=== PATIENT | male | born 1980 | race Caucasian/White ===

== ENCOUNTER 2018-07-14 00:27 | Emergency (ER) | payer SELFPAY ==
[~2018-07-14] VITALS: Ht 165.1 cm; Wt 106.7 kg
[2018-07-14 00:36] VITALS: BP 106/64
--- NOTE | 2018-07-14 00:38 | NUR ---
PT TAKEN TO BED 4
[2018-07-14] MEDS ORDERED: ACET-5636 PO (00:40)
--- NOTE | 2018-07-14 00:40 | NUR ---
37/M CAME IN ED, C/O 07/21 CONSTANT PRESSURE-LIKE L LOWER BACK PAIN, X2 DAYS WORSENING TODAY. NO OBVIOUS ABNORMALITY NOTED, TENDER TO TOUCH. PT DENIES TRAUMA, FEVER, N/V/D, CONSTIPATION, HEMATURIA OR DYSURIA. PT REPORTS TAKING PERCOCET WITH LITTLE RELIEF, LAST DOSE 30 MINS AGO. AOX4, GCS 15, AMBULATORY, RR EVEN AND UNLABORED, PT MILDLY DISTRESSED WITH PAIN. HX SPINAL FUSION T2-L2 (2017)
--- NOTE | 2018-07-14 00:51 | NUR ---
Dr. Ramírez evaluating patient at bedside.
[2018-07-14] MEDS: KETOROLAC 30 MG/ML VIAL IVP ONE (01:02)
[2018-07-14] MEDS: NACL 0.9% 1,000 ML IV SCH (01:03)
--- NOTE | 2018-07-14 01:04 | NUR ---
IV STARTED, BLOOD DRAWN AND HANDED TO SPIN TABLE OPERATOR, MEDS GIVEN, PT TOLERATED WELL.
[2018-07-14 01:14] LABS: BASOPHILS % (AUTO) 0.4 % (0.0-2.0); EOSINOPHILS # (AUTO) 0.1 K/uL (0-0.4); EOSINOPHILS % (AUTO) 0.7 % (0.0-4.0); HEMATOCRIT 37.4 % (36-52); HEMOGLOBIN 12.2 g/dL (12.0-18.0); LYMPHOCYTES # (AUTO) 2.3 K/uL (2.0-11.5); LYMPHOCYTES % (AUTO) 18.3 % (20.5-51.1); MEAN CORPUSCULAR HEMOGLOBIN 27 pg (27-31); MEAN CORPUSCULAR HGB CONC 33 g/dL (33-37); MEAN CORPUSCULAR VOLUME 82.7 fL (80-94); MONOCYTES # (AUTO) 0.9 K/uL (0.8-1.0); MONOCYTES % (AUTO) 6.9 % (1.7-9.3); NEUTROPHILS # (AUTO) 9.4 K/uL (1.8-7.7); NEUTROPHILS % (AUTO) 73.7 % (42.2-75.2); PLATELET COUNT (AUTO) 215 K/uL (140-450); RED BLOOD CELL COUNT(AUTO) 4.53 MIL/uL (4.20-6.10); RED CELL DISTRIBUTION WIDTH 15.5 % (11.6-13.7); WHITE BLOOD COUNT (AUTO) 12.7 K/uL (4.8-10.8)
--- NOTE | 2018-07-14 01:14 | NUR ---
PT TAKEN TO CT
[2018-07-14 01:18] LABS: APPEARANCE,URINE CLEAR (CLEAR); BILIRUBIN,URINE NEGATIVE (NEGATIVE); BLOOD, URINE 1+ (NEGATIVE); COLOR,URINE YELLOW (YELLOW); LEUKOCYTE ESTERASE ,URINE NEGATIVE (NEGATIVE); NITRITE, URINE NEGATIVE (NEGATIVE); UGLUCOSE NEGATIVE (NEGATIVE)
[2018-07-14 01:25] LABS: ANION GAP 7.2 (8-16); CARBON DIOXIDE 27.6 mmol/L (21-32); CREATININE 0.8 mg/dL (0.7-1.3); POTASSIUM 3.8 mmol/L (3.5-5.1)
[2018-07-14 01:28] LABS: RBC,URINE 0-5 (RARE) /HPF (0-5); WBC,URINE 0-5 (RARE) /HPF (0-5)
--- NOTE | 2018-07-14 01:28 | NUR ---
PT RETURN FROM CT
--- NOTE | 2018-07-14 01:28 | NUR ---
PT BACK FROM CT
--- NOTE | 2018-07-14 01:30 | NUR ---
PT REPORTS IMPROVEMENT IN PAIN RELIEF, REPORTS 6/10 L LOWER BACK PAIN. ALL NEEDS MET AT THIS TIME.
[2018-07-14 01:31] LABS: ALBUMIN 3.2 g/dL (3.4-5.0); TOTAL BILIRUBIN 0.5 mg/dL (0.0-1.0)
--- NOTE | 2018-07-14 02:48 | NUR ---
PT RESTING IN BED, REPORTS 8/10 L LOWER BACK PAIN, ER MD AT BEDSIDE TO SPEAK WITH PT.
[2018-07-14 02:56] VITALS: BP 134/69
--- NOTE | 2018-07-14 02:56 | NUR ---
Patient discharged with v/s stable. Written and verbal after care instructions given and explained. Patient verbalized understanding. Ambulatory with steady gait. All questions addressed prior to discharge. Advised to follow up with PMD.
== END 2018-07-14 02:56 | disposition home or self-care (01) ==
LOC: MED 00:27
DX: M54.5 Low back pain (principal); Z88.1 Allergy status to other antibiotic agents; Z79.899 Other long term (current) drug therapy
CPT/HCPCS: 36415; 74176; 80053; 81001; 83690; 85025; 96374; 99285; J1885; J7030; 81002

== ENCOUNTER 2018-12-07 05:45 | Emergency (ER) | payer OTHER ==
[~2018-12-07] VITALS: Ht 165.1 cm; Wt 106.6 kg
[~2018-12-07 05:45] MED LIST: ACET-5636 PO
[2018-12-07 05:53] VITALS: BP 122/89
--- NOTE | 2018-12-07 05:55 | NUR ---
EKG PERFORMED IN TRIAGE ROOM WITH TRIAGE NURSE PRESENT
--- NOTE | 2018-12-07 06:01 | NUR ---
PT AMBULATED TO BED 4 WITH VSS.
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
[2018-12-07] MEDS ORDERED: KETOROLAC 30 MG/ML VIAL IVP ONE (06:10)
[2018-12-07] MEDS ORDERED: NACL 0.9% 1,000 ML IV ONE (06:10)
[2018-12-07] MEDS ORDERED: ASPIRIN 81 MG TAB.CHEW PO ONE (06:10)
--- NOTE | 2018-12-07 06:10 | NUR ---
X-RAY AT BEDSIDE, PT STATES TO BE IN TO MUCH PAIN AND DECLINING X-RAY AT THIS TIME.
--- NOTE | 2018-12-07 06:30 | NUR ---
LAB AT BEDSIDE.
[2018-12-07 06:38] LABS: BASOPHILS % (AUTO) 0.5 % (0.0-2.0); EOSINOPHILS # (AUTO) 0.1 K/uL (0-0.4); EOSINOPHILS % (AUTO) 1.9 % (0.0-4.0); HEMATOCRIT 38.6 % (36-52); HEMOGLOBIN 12.6 g/dL (12.0-18.0); LYMPHOCYTES # (AUTO) 2.6 K/uL (2.0-11.5); LYMPHOCYTES % (AUTO) 33.3 % (20.5-51.1); MEAN CORPUSCULAR HEMOGLOBIN 27 pg (27-31); MEAN CORPUSCULAR HGB CONC 33 g/dL (33-37); MONOCYTES # (AUTO) 0.6 K/uL (0.8-1.0); MONOCYTES % (AUTO) 7.9 % (1.7-9.3); NEUTROPHILS # (AUTO) 4.4 K/uL (1.8-7.7); NEUTROPHILS % (AUTO) 56.4 % (42.2-75.2); PLATELET COUNT (AUTO) 279 K/uL (140-450); RED BLOOD CELL COUNT(AUTO) 4.71 MIL/uL (4.20-6.10); RED CELL DISTRIBUTION WIDTH 15.6 % (11.6-13.7); WHITE BLOOD COUNT (AUTO) 7.7 K/uL (4.8-10.8)
--- NOTE | 2018-12-07 06:52 | NUR ---
PT IS STILL IN A LOT OF PAIN, ER MADE AWARE. PT STATES TO HAVE A RIDE AVAILABLE IF HE RECIEVES STRONGER PAIN MEDICATION.
[2018-12-07] MEDS ORDERED: MORPHINE SULFATE 4 MG/ML SYR IVP ONE ×2 (06:55→08:30)
[2018-12-07] MEDS ORDERED: PANTOPRAZOLE 40 MG INJ VIAL IVP ONE (06:55)
[2018-12-07 07:08] LABS: ALBUMIN 3.3 g/dL (3.4-5.0); ANION GAP 10.9 (8-16); CREATININE 0.8 mg/dL (0.7-1.3); POTASSIUM 3.9 mmol/L (3.5-5.1); TOTAL BILIRUBIN 0.5 mg/dL (0.0-1.0)
--- NOTE | 2018-12-07 07:20 | NUR ---
Pt report given to Divina ELIZABETH at bedside; vss. Transfer of care at this time.
--- NOTE | 2018-12-07 07:28 | NUR ---
PT. RESTING COMFORTABLY IN BED, HOB ELEVATED CURRENT PAIN 5/10 AFTER MEDICATION ADMINISTRATION. VSS. WILL CONTINUE TO MONITOR.
--- NOTE | 2018-12-07 08:52 | NUR ---
PT. UNABLE TO PROVIDE URINE SAMPLE AT THIS TIME, ER MD BUCKNER MADE AWARE. PER DOCTOR OKAY TO DISCHARGE WITHOUT URINE SPECIMEN PROVIDED.
[2018-12-07 09:02] VITALS: BP 99/53
--- NOTE | 2018-12-07 09:02 | NUR ---
Patient discharged with v/s stable. Written and verbal after care instructions given and explained. Patient alert, oriented and verbalized understanding of instructions. Ambulatory with steady gait. All questions addressed prior to discharge. ID band removed. Patient advised to follow up with PMD. Rx of NAPROSYN 375MG, NORCO 5/325 given. Patient educated on indication of medication including possible reaction and side effects. Opportunity to ask questions provided and answered. PT AMB TO LOBBY WITH STEADY GAIT AND WAITING FOR IZZY MITCHELL GIRLFRIEND.
== END 2018-12-07 09:02 | disposition home or self-care (01) ==
LOC: MED 05:45
DX: R07.89 Other chest pain (principal); M54.9 Dorsalgia, unspecified; G89.29 Other chronic pain; Z88.1 Allergy status to other antibiotic agents; Z88.8 Allergy status to other drugs, medicaments and biological substances; Z79.899 Other long term (current) drug therapy
CPT/HCPCS: 36415; 71045; 80053; 84484; 85025; 93005; 96374; 96375; 96376; 99284; C9113; J1885; J2270; J7030; Q0092

== ENCOUNTER 2019-04-01 12:20 | Emergency (ER) | payer OTHER ==
[~2019-04-01] VITALS: Ht 165.1 cm; Wt 106.6 kg
[2019-04-01 12:25] VITALS: BP 130/77
--- NOTE | 2019-04-01 12:35 | NUR ---
C/O CHEST PAIN AND BACK PAIN FOR 5 DAYS , TOOK IBUPROFEN 400 MG THIS MORNING AT 0800, DOES NOT HELP TOO MUCH HX: SPINAL FUSION TX: BACLOFEN . DENIES N/V/D; SKIN IS PINK/WARM/DRY; AAOX4 WITH EVEN AND STEADY GAIT; LUNGS CLEAR BL; HR EVEN AND REGULAR; PT DENIES ANY FEVER, SOB, OR COUGH AT THIS TIME; PATIENT STATES PAIN OF 7/10 AT THIS TIME; VSS; PATIENT POSITIONED FOR COMFORT; HOB ELEVATED; BEDRAILS UP X2; BED DOWN. ER MD MADE AWARE OF PT STATUS.
--- NOTE | 2019-04-01 12:43 | NUR ---
bedside monitor shows ST 105S, NO S/S OF RESPIRATORY DISTRESS NOTED.
[2019-04-01] MEDS ORDERED: KETOROLAC 60 MG/2 ML VIAL IM ONE (13:10)
--- NOTE | 2019-04-01 13:33 | NUR ---
Dr. Ramírez evaluating patient at bedside.
--- NOTE | 2019-04-01 13:33 | NUR ---
Patient being evaluated by physician at bedside.
[2019-04-01] MEDS ORDERED: NACL 0.9% 1,000 ML IV SCH (14:06)
[2019-04-01] MEDS ORDERED: MORPHINE SULFATE 4 MG/ML SYR IVP ONE ×2 (14:10→16:15)
--- NOTE | 2019-04-01 14:21 | NUR ---
PT STATED PAIN, MORPHINE GIVEN ORDERED.
--- NOTE | 2019-04-01 14:23 | NUR ---
PT LEFT FOR CT VIA WHEELCHAIR PER TECH.
[2019-04-01 14:36] LABS: BASOPHILS % (AUTO) 0.5 % (0.0-2.0); EOSINOPHILS # (AUTO) 0.1 K/uL (0-0.4); EOSINOPHILS % (AUTO) 1.3 % (0.0-4.0); HEMATOCRIT 39.1 % (36-52); HEMOGLOBIN 13.1 g/dL (12.0-18.0); LYMPHOCYTES # (AUTO) 2.4 K/uL (2.0-11.5); LYMPHOCYTES % (AUTO) 23.9 % (20.5-51.1); MEAN CORPUSCULAR HEMOGLOBIN 28 pg (27-31); MEAN CORPUSCULAR HGB CONC 33 g/dL (33-37); MEAN CORPUSCULAR VOLUME 82.4 fL (80-94); MONOCYTES # (AUTO) 0.7 K/uL (0.8-1.0); MONOCYTES % (AUTO) 7.3 % (1.7-9.3); NEUTROPHILS # (AUTO) 6.6 K/uL (1.8-7.7); PLATELET COUNT (AUTO) 379 K/uL (140-450); RED BLOOD CELL COUNT(AUTO) 4.75 MIL/uL (4.20-6.10); RED CELL DISTRIBUTION WIDTH 15.6 % (11.6-13.7); WHITE BLOOD COUNT (AUTO) 9.8 K/uL (4.8-10.8)
[2019-04-01 14:48] LABS: ANION GAP 13.4 (8-16); CARBON DIOXIDE 27.7 mmol/L (21-32); CREATININE 0.7 mg/dL (0.7-1.3); POTASSIUM 4.1 mmol/L (3.5-5.1)
[2019-04-01 14:58] LABS: APPEARANCE,URINE CLEAR (CLEAR); BILIRUBIN,URINE NEGATIVE (NEGATIVE); BLOOD, URINE 1+ (NEGATIVE); COLOR,URINE YELLOW (YELLOW); LEUKOCYTE ESTERASE ,URINE NEGATIVE (NEGATIVE); NITRITE, URINE NEGATIVE (NEGATIVE); PH,URINE 6.5 (5.0-9.0); UGLUCOSE NEGATIVE (NEGATIVE)
[2019-04-01 15:01] LABS: ALBUMIN 3.4 g/dL (3.4-5.0); TOTAL BILIRUBIN 0.3 mg/dL (0.0-1.0)
[2019-04-01 15:05] LABS: WBC,URINE 0-5 /HPF (0-5)
--- NOTE | 2019-04-01 15:41 | NUR ---
Dr. Ramírez re-evaluating patient at bedside.
--- NOTE | 2019-04-01 15:50 | NUR ---
PT SLEEPING AT THIS MOMENT. NO S/S OF RESPIATORY DISTRESS NOTED.
--- NOTE | 2019-04-01 16:16 | NUR ---
PT C/O CONTINUED PAIN TO BACK , DR BAR MADE AWARE, WILL CONTINUE WITH ORDERS.
--- NOTE | 2019-04-01 16:36 | NUR ---
Patient discharged with v/s stable. Written and verbal after care instructions given and explained. Patient alert, oriented and verbalized understanding of instructions. Ambulatory with steady gait. All questions addressed prior to discharge. ID band removed. Patient advised to follow up with PMD. Rx of NORCO given. Patient educated on indication of medication including possible reaction and side effects. Opportunity to ask questions provided and answered. PT CALLED FOR RIDE HOME AND WILL WAIT IN LOBBY FOR RIDE.
[2019-04-01 16:37] VITALS: BP 120/77
--- NOTE | 2019-04-05 07:26 | NUR ---
Late entry. Confirmed with RN that 1000ml 0.9 NS IV was completed at 1515
== END 2019-04-01 16:37 | disposition home or self-care (01) ==
LOC: MED 12:20
DX: R10.9 Unspecified abdominal pain (principal); M54.9 Dorsalgia, unspecified; Z98.890 Other specified postprocedural states; Z79.899 Other long term (current) drug therapy; Z88.1 Allergy status to other antibiotic agents; Z88.8 Allergy status to other drugs, medicaments and biological substances
CPT/HCPCS: 36415; 71250; 74176; 80053; 81001; 83690; 85025; 96372; 96374; 96376; 99284; J1885; J2270; J7030

== ENCOUNTER 2019-04-16 02:35 | Emergency (ER) | payer OTHER ==
[~2019-04-16] VITALS: Ht 165.1 cm; Wt 106.6 kg
[2019-04-16 02:41] VITALS: BP 103/72
--- NOTE | 2019-04-16 02:50 | NUR ---
PT TAKEN TO BED 10 VIA WHEELCHAIR, PT AMBULATED TO BED W/ STEADY GAIT. ERMD AWARE OF PT STATUS.
[2019-04-16] MEDS ORDERED: methylPREDNISolone SS 125 MG in WATER STERILE 2 ML IV ONE (03:15)
[2019-04-16] MEDS ORDERED: KETOROLAC 15 MG/ML VIAL IVP ONE (03:15)
[2019-04-16] MEDS ORDERED: ONDANSETRON 4 MG/2 ML VIAL IVP ONE (03:15)
[2019-04-16] MEDS ORDERED: MORPHINE SULFATE 4 MG/ML SYR IVP ONE (03:15)
--- NOTE | 2019-04-16 03:30 | NUR ---
PT TO ED WITH C/O L LEG PAIN RADIATING DOWN ENTIRE LEG X 3 DAYS. PT REPORTS HX OF SCIATICA S/P SPINE SURGERY. NO OBVIOUS DEFORMITY NOTED. PT PLACED INTO BED, PENDING MD GONZALEZ.
[2019-04-16] MEDS ORDERED: KETOROLAC 30 MG/ML VIAL ONE (03:50)
--- NOTE | 2019-04-16 04:11 | NUR ---
PT ON CELL PHONE, NO APPARENT SIGNS OF DISTRESS. POST LEAD ANDROID DEVELOPER.
[2019-04-16 04:39] VITALS: BP 103/72
--- NOTE | 2019-04-16 04:39 | NUR ---
Patient discharged with v/s stable. Written and verbal after care instructions given and explained. Patient alert, oriented and verbalized understanding of instructions. Ambulatory with steady gait. All questions addressed prior to discharge. ID band removed. Patient advised to follow up with PMD. Rx of PREDNISONE, NAPROSYN, LIDODERM WAS given. Patient educated on indication of medication including possible reaction and side effects. Opportunity to ask questions provided and answered. PT STATED "THE PAIN WENT AWAY" WHEN HE GOT UP PRIOR TO D/C.PT WAS EDUCATED ON OUTPATIENT CARE AND TO FOLLOW UP WITH PCP AND TO RETURN TO PT, EXCERCISE. PT UNDERSTOOD EDUCATION.
== END 2019-04-16 04:39 | disposition home or self-care (01) ==
LOC: MED 02:35
DX: M54.32 Sciatica, left side (principal); Z88.1 Allergy status to other antibiotic agents; Z79.899 Other long term (current) drug therapy
CPT/HCPCS: 96374; 96375; 99283; J1885; J2270; J2405; J2930

== ENCOUNTER 2019-05-03 05:49 | Emergency (ER) | payer OTHER ==
[~2019-05-03] VITALS: Ht 165.1 cm; Wt 104.3 kg
--- NOTE | 2019-05-03 05:57 | NUR ---
PT TAKEN TO BED 2
[2019-05-03 06:02] VITALS: BP 123/67
--- NOTE | 2019-05-03 06:05 | NUR ---
38/M PRESENTED TO ER AMBULATORY. UNSTEADY GAIT. C/O LEFT LEG PAIN RADIATING TO RIGHT LEG FOR 1 MONTH INTERMITTENTLY. STATES HIS PAIN IS WORSENING. HX OF SPINAL FUSION T2-L2 IN 2017. TAKES IBUPROFEN, NAPROXEN, HYDROCODONE AT HOME. BUT DOES NOT HELP ALLEVIATE THE SYMPTOMS. NO MEDICAL HX. NKA. NO SOB, NO DISTRESS. WILL CONTINUE TO MONITOR.
--- NOTE | 2019-05-03 06:18 | NUR ---
Dr. Piña examining patient.
[2019-05-03] MEDS ORDERED: MORPHINE SULFATE 2 MG/ML SYR IM ONE (06:20)
[2019-05-03 06:45] VITALS: BP 120/65
== END 2019-05-03 06:45 | disposition home or self-care (01) ==
LOC: MED 05:49
DX: M54.42 Lumbago with sciatica, left side (principal); M54.41 Lumbago with sciatica, right side; R03.0 Elevated blood-pressure reading, without diagnosis of hypertension; Z98.890 Other specified postprocedural states; Z79.899 Other long term (current) drug therapy; Z88.1 Allergy status to other antibiotic agents; Z88.8 Allergy status to other drugs, medicaments and biological substances
CPT/HCPCS: 96372; 99283; J2270

== ENCOUNTER 2020-07-10 16:46 | Emergency (ER) | payer OTHER ==
[~2020-07-10] VITALS: Ht 165.1 cm; Wt 106.6 kg
[2020-07-10 16:49] VITALS: BP 115/66
--- NOTE | 2020-07-10 16:54 | NUR ---
PT AMBULATED TO BED #3
--- NOTE | 2020-07-10 16:55 | NUR ---
C/O BACK PAIN X6 MONTHS S/P SPINAL FUSION 3 YEARS AGO. PAIN IS 10/10 SHARP LOCATED AT BACK. PT TOOK 4 IBUPROFEN TODAY. PT AOX4 AFIBRILE , AMBULATORY WITH STEADY GAIT, SCE , NO LIMITATION ON ROM OF LEFT SHOULDER AND ARM. FLAT SOFT ABDOMEN. PMH: SPINAL FUSION ALLERGIES: AMOXICILLIN, CLAVULANIC ACID
--- NOTE | 2020-07-10 16:57 | NUR ---
MELISSA JESSICA AT BEDSIDE EVALUATING PT.
[2020-07-10] MEDS ORDERED: KETOROLAC 60 MG/2 ML VIAL IM ONE (17:10)
[2020-07-10 17:23] VITALS: BP 115/66
--- NOTE | 2020-07-10 17:24 | NUR ---
Patient discharged with v/s stable. Written and verbal after care instructions given and explained regarding chronic pain. Patient alert, oriented and verbalized understanding of instructions. Ambulatory with steady gait. All questions addressed prior to discharge. ID band removed. Patient advised to follow up with PMD. Rx of norco given. Patient educated on indication of medication including possible reaction and side effects. Opportunity to ask questions provided and answered.
== END 2020-07-10 17:24 | disposition home or self-care (01) ==
LOC: MED 16:46
DX: M54.6 Pain in thoracic spine (principal); M43.26 Fusion of spine, lumbar region; F12.90 Cannabis use, unspecified, uncomplicated; Z88.1 Allergy status to other antibiotic agents; Z79.899 Other long term (current) drug therapy
CPT/HCPCS: 96372; 99283; J1885

== ENCOUNTER 2020-09-12 15:05 | Emergency (ER) | payer OTHER ==
[~2020-09-12] VITALS: Ht 165.1 cm; Wt 106.6 kg
[2020-09-12 15:24] VITALS: BP 112/77
--- NOTE | 2020-09-12 15:36 | NUR ---
39 y/o male from home c/o lower back pain s/p spinal fusion in 2017. Pt states increase in pain for 1.5 wks, and goes to pain mgmt tomorrow. Took ibuprofen for pain prior to arrival with no relief. Pacing back and forth due to pain. 9/10 constant sharp pain. Skin warm, dry, intact. VSS medhx: spinal fusion
--- NOTE | 2020-09-12 15:43 | NUR ---
MELISSA Jaeger at chair examining patient
[2020-09-12] MEDS ORDERED: KETOROLAC 30 MG/ML VIAL IM ONE (15:50)
[2020-09-12 15:54] VITALS: BP 112/77
--- NOTE | 2020-09-12 15:54 | NUR ---
Patient discharged with v/s stable. Written and verbal after care instructions given and explained. Patient verbalized understanding. Ambulatory with steady gait. All questions addressed prior to discharge. Advised to follow up with PMD. Pt received work note upon discharge
== END 2020-09-12 15:54 | disposition home or self-care (01) ==
LOC: MED 15:05
DX: M54.31 Sciatica, right side (principal); M43.20 Fusion of spine, site unspecified; Z88.0 Allergy status to penicillin; Z88.1 Allergy status to other antibiotic agents; Z79.899 Other long term (current) drug therapy
CPT/HCPCS: 96372; 99283; J1885

== ENCOUNTER 2021-05-13 12:55 | Emergency (ER) | payer OTHER ==
[~2021-05-13] VITALS: Ht 167.6 cm; Wt 93.0 kg
[2021-05-13 13:07] VITALS: BP 126/69
--- NOTE | 2021-05-13 13:07 | NUR ---
EKG BEING DONE BY EMT IN TRIAGE ROOM.
--- NOTE | 2021-05-13 13:09 | NUR ---
40 Y/O MALE C/O CHEST PAIN 02/18 DESCRIBES SHARP NON-RADIATING X1DAY. PT STATES HE HAD A SYNCOPAL EPISODE WITH UNKNOWN LOC LAST NIGHT. DENIES N/V, DENIES FEVER/CHILLS. PT STATES HE HAS SOB WHEN BREATHING IN, SPO2 98% ON RA. DENIES PMH ALLERGIES: AMOXICILLIN, AND CLAVULANIC ACID
--- NOTE | 2021-05-13 13:11 | NUR ---
PT TAKEN TO [facility] FOR LAB DRAWS.
--- NOTE | 2021-05-13 13:20 | NUR ---
PT TAKEN TO LOBBY.
[2021-05-13 13:39] LABS: BASOPHILS % (AUTO) 0.3 % (0.0-2.0); EOSINOPHILS % (AUTO) 0.2 % (0.0-4.0); HEMATOCRIT 39.3 % (36-52); HEMOGLOBIN 13.2 g/dL (12.0-18.0); LYMPHOCYTES # (AUTO) 1.6 K/uL (2.0-11.5); LYMPHOCYTES % (AUTO) 14.7 % (20.5-51.1); MEAN CORPUSCULAR HEMOGLOBIN 29 pg (27-31); MEAN CORPUSCULAR HGB CONC 34 g/dL (33-37); MEAN CORPUSCULAR VOLUME 85.7 fL (80-94); MONOCYTES # (AUTO) 0.4 K/uL (0.8-1.0); MONOCYTES % (AUTO) 3.6 % (1.7-9.3); NEUTROPHILS # (AUTO) 8.9 K/uL (1.8-7.7); NEUTROPHILS % (AUTO) 81.2 % (42.2-75.2); PLATELET COUNT (AUTO) 321 K/uL (140-450); RED BLOOD CELL COUNT(AUTO) 4.59 MIL/uL (4.20-6.10); RED CELL DISTRIBUTION WIDTH 15.4 % (11.6-13.7)
--- NOTE | 2021-05-13 13:40 | NUR ---
PT STATES HE IS UNABLE TO PRIOVIDE UA AT THIS TIME, WATER PROVIDED.
[2021-05-13 14:00] LABS: ALBUMIN 3.9 g/dL (3.4-5.0); ANION GAP 10.2 (8-16); CARBON DIOXIDE 28.7 mmol/L (21-32); CREATININE 0.8 mg/dL (0.6-1.3); POTASSIUM 3.9 mmol/L (3.5-5.1); TOTAL BILIRUBIN 0.5 mg/dL (0.0-1.0)
[2021-05-13 14:05] LABS: THYROID STIMULATING HORMONE 0.92 uIU/mL (0.34-3.74)
[2021-05-13 15:12] VITALS: BP 114/58
== END 2021-05-13 15:12 | disposition home or self-care (01) ==
LOC: MED 12:55
DX: R07.89 Other chest pain (principal)
CPT/HCPCS: 36415; 71045; 80053; 83880; 84443; 84484; 85025; 93005; 99285; G0482

== ENCOUNTER 2021-06-04 18:37 | Emergency (ER) | payer OTHER ==
--- NOTE | 2021-06-04 19:25 | NUR ---
PT CALLED IN LOBBY AND OUTSIDE WITH NO ANSWER.
--- NOTE | 2021-06-04 19:31 | NUR ---
PT CALLED IN LOBBY AND OUTSIDE WITH NO ANSWER.
--- NOTE | 2021-06-04 19:36 | NUR ---
PT CALLED IN LOBBY AND OUTSIDE WITH NO ANSWER.
--- NOTE | 2021-06-04 19:56 | NUR ---
PT CALLED BY CHITRA PALACIOS FOR MSE. NO RESPONSE FROM CHITRA FREEMAN
--- NOTE | 2021-06-04 19:56 | NUR ---
PATIENT LEFT WITHOUT BEING SEEN BY DR. PALACIOS. NO FURTHER CARE PROVIDED FOR PATIENT.
== END 2021-06-04 19:25 | disposition left against medical advice (07) ==
LOC: MED 18:37
DX: F32.9 Major depressive disorder, single episode, unspecified (principal); Z53.21 Procedure and treatment not carried out due to patient leaving prior to being seen by health care provider

== ENCOUNTER 2022-09-04 11:54 | Emergency (ER) | payer OTHER ==
[~2022-09-04] VITALS: Ht 165.1 cm; Wt 88.0 kg
[2022-09-04 12:14] VITALS: BP 101/61
--- NOTE | 2022-09-04 12:30 | NUR ---
41YO MALE PT C/O COUGH AND BODY ACHES XYESTERDAY. MILD RELIEF AFTER TAKING THERAFLU. MOIST COUGH PRESENT. JENNIFER CLEAR LUNG SOUNDS. DENIES N/V/D, CHST PAIN, SOB , FEVER , CHILLS OR ANYONE SICK AT HOME. PT AAOX4, RESPIRATIONS EVEN AND UNLABORED. HX:DENIES ALLERGIES: AMOXICILLIN, CLAVULANIC ACID
[2022-09-04] MEDS ORDERED: KETOROLAC 30 MG/ML VIAL IM ONE (13:10)
[2022-09-04] MEDS ORDERED: IBUP-2213 PO (13:24)
[2022-09-04] MEDS ORDERED: PROM118S5 PO (13:24)
[2022-09-04] MEDS ORDERED: LIDO100S PO (13:24)
[2022-09-04] MEDS ORDERED: AZIT250T4 PO (13:24)
--- NOTE | 2022-09-04 13:25 | NUR ---
pt swabbed for covid(yue) and flu. handed to lab
[2022-09-04 13:46] VITALS: BP 126/88
--- NOTE | 2022-09-04 13:46 | NUR ---
Patient discharged with v/s stable. Written and verbal after care instructions FOR UPPER RESPIRATORY INFECTION AND OTITIS MEDIA given and explained. Patient alert, oriented and verbalized understanding of instructions. Ambulatory with steady gait. All questions addressed prior to discharge. ID band removed. Patient advised to follow up with PMD. Rx of ZITHROMAX Z PACK, IBUPROFEN , LIDOCAINE AND PROMETHAZINE given. Opportunity to ask questions provided and answered.
--- NOTE | 2022-09-04 14:13 | NUR ---
Chart checked and completed. The patient's care was reviewed and supervised by Tamiko Cage RN.
== END 2022-09-04 13:46 | disposition home or self-care (01) ==
LOC: MED 11:54
DX: J06.9 Acute upper respiratory infection, unspecified (principal); Z20.822 Contact with and (suspected) exposure to COVID-19; H66.92 Otitis media, unspecified, left ear
CPT/HCPCS: 87426; 87804; 96372; 99283; J1885

== ENCOUNTER 2022-10-03 13:38 | Emergency (ER) | payer OTHER ==
[~2022-10-03] VITALS: Ht 165.1 cm; Wt 89.4 kg
[~2022-10-03 13:38] MED LIST changes: +AZIT250T4 PO; +IBUP-2213 PO; +LIDO100S PO; +PROM118S5 PO
[2022-10-03 13:50] VITALS: BP 112/74
[2022-10-03] MEDS ORDERED: KETOROLAC 30 MG/ML VIAL IM ONE (14:30)
[2022-10-03] MEDS ORDERED: IBUP-2213 PO (14:36)
[2022-10-03 14:56] VITALS: BP 112/75
== END 2022-10-03 14:56 | disposition home or self-care (01) ==
LOC: MED 13:38
DX: R68.84 Jaw pain (principal); Z88.1 Allergy status to other antibiotic agents; Z88.8 Allergy status to other drugs, medicaments and biological substances; Z79.899 Other long term (current) drug therapy; Z98.890 Other specified postprocedural states
CPT/HCPCS: 96372; 99283; J1885

== ENCOUNTER 2022-11-16 08:43 | Emergency (ER) | payer OTHER ==
[~2022-11-16] VITALS: Ht 165.1 cm; Wt 95.3 kg
[2022-11-16 08:52] VITALS: BP 119/77
--- NOTE | 2022-11-16 08:57 | NUR ---
PT AMB TO BED 9
[2022-11-16] MEDS ORDERED: AMIT50TA27 PO ×2 (09:05→09:50)
[2022-11-16 10:15] VITALS: BP 119/77
--- NOTE | 2022-11-16 10:16 | NUR ---
Patient discharged with v/s stable. Written and verbal after care instructions given and explained. Patient alert, oriented and verbalized understanding of instructions. Ambulatory with steady gait. All questions addressed prior to discharge. ID band removed. Patient advised to follow up with PMD. Rx of AMITRYPTILINE given. Patient educated on indication of medication including possible reaction and side effects. Opportunity to ask questions provided and answered.
== END 2022-11-16 10:15 | disposition home or self-care (01) ==
LOC: MED 08:43
DX: Z76.0 Encounter for issue of repeat prescription (principal); Z88.1 Allergy status to other antibiotic agents; Z88.8 Allergy status to other drugs, medicaments and biological substances
CPT/HCPCS: 99281

== ENCOUNTER 2023-03-02 07:00 | Emergency (ER) | payer OTHER ==
[~2023-03-02] VITALS: Ht 165.1 cm; Wt 88.5 kg
[~2023-03-02 07:00] MED LIST changes: +AMIT50TA27 PO
[2023-03-02 07:21] VITALS: BP 114/76
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
--- NOTE | 2023-03-02 08:00 | NUR ---
42YO M PT C/O RT LOWER BACK X 2 DAYS, PAIN INCREASED W/MOVEMENT. PT W/HX OF SPINAL SURGERY 2017, STATES HE'S TAKING HYDROCODONE BUT NOT HELPING, TAKING MORE PILLS THAN PRESCRIBED AND RAN OUT OF MEDS. DENIES DYSURIA OR NEW INJURY, NUMBNESS,LOSS OF SENSATION. BACK W/O VISIBLE DEFORMITY. AOX4, STEADY GAIT, HEAD OF BED POSITIONED FOR COMFORT. HX: SX SPINAL ALLERGIES: AUGMENTIN
[2023-03-02] MEDS ORDERED: KETOROLAC 30 MG/ML VIAL IM ONE (08:30)
--- NOTE | 2023-03-02 08:43 | NUR ---
The patient's care was reviewed and supervised by CADE TEIXEIRA RN.
--- NOTE | 2023-03-02 08:46 | NUR ---
pt brought back from ct via cuong
[2023-03-02 08:58] LABS: BASOPHILS % (AUTO) 0.5 % (0.0-2.0); EOSINOPHILS # (AUTO) 0.1 K/uL (0-0.4); EOSINOPHILS % (AUTO) 1.5 % (0.0-4.0); HEMATOCRIT 40.5 % (36-52); HEMOGLOBIN 13.7 g/dL (12.0-18.0); LYMPHOCYTES # (AUTO) 1.8 K/uL (2.0-11.5); LYMPHOCYTES % (AUTO) 20.8 % (20.5-51.1); MEAN CORPUSCULAR HEMOGLOBIN 29 pg (27-31); MEAN CORPUSCULAR HGB CONC 34 g/dL (33-37); MEAN CORPUSCULAR VOLUME 85.3 fL (80-94); MONOCYTES # (AUTO) 0.5 K/uL (0.8-1.0); MONOCYTES % (AUTO) 5.9 % (1.7-9.3); NEUTROPHILS # (AUTO) 6.1 K/uL (1.8-7.7); NEUTROPHILS % (AUTO) 71.3 % (42.2-75.2); PLATELET COUNT (AUTO) 256 K/uL (140-450); RED BLOOD CELL COUNT(AUTO) 4.75 MIL/uL (4.20-6.10); RED CELL DISTRIBUTION WIDTH 14.7 % (11.6-13.7); WHITE BLOOD COUNT (AUTO) 8.6 K/uL (4.8-10.8)
[2023-03-02 09:08] LABS: ANION GAP 10.6 (8-16); CARBON DIOXIDE 28.6 mmol/L (21-32); CREATININE 0.9 mg/dL (0.6-1.3); POTASSIUM 4.2 mmol/L (3.5-5.1)
[2023-03-02 10:17] LABS: APPEARANCE,URINE CLEAR (CLEAR); BILIRUBIN,URINE NEGATIVE (NEGATIVE); BLOOD, URINE 2+ (NEGATIVE); COLOR,URINE YELLOW (YELLOW); LEUKOCYTE ESTERASE ,URINE NEGATIVE (NEGATIVE); NITRITE, URINE NEGATIVE (NEGATIVE); UGLUCOSE NEGATIVE (NEGATIVE)
[2023-03-02] MEDS ORDERED: NAPR-54 PO (12:08)
[2023-03-02 12:18] VITALS: BP 101/71
--- NOTE | 2023-03-02 12:19 | NUR ---
Patient discharged with v/s stable. Written and verbal after care instructions given and explained. Patient alert, oriented and verbalized understanding of instructions. Ambulatory with steady gait. All questions addressed prior to discharge. ID band removed. Patient advised to follow up with PMD. Rx NAPROXEN of given. Opportunity to ask questions provided and answered. WORK NOTE GIVEN, X-RAY CD PROVIDED.
--- NOTE | 2023-03-02 14:22 | NUR ---
PT. WAS D/C BY BRATTICE BUILDER BEFORE RN COULD EXAMINE PT. NOTIFIED
== END 2023-03-02 12:18 | disposition home or self-care (01) ==
LOC: MED 07:00
DX: M54.50 Low back pain, unspecified (principal); Z98.890 Other specified postprocedural states; Z79.899 Other long term (current) drug therapy; Z79.1 Long term (current) use of non-steroidal anti-inflammatories (NSAID); Z79.2 Long term (current) use of antibiotics; Z88.0 Allergy status to penicillin; Z88.1 Allergy status to other antibiotic agents
CPT/HCPCS: 36415; 74176; 80048; 81001; 85025; 96372; 99285; J1885

== ENCOUNTER 2024-02-08 03:10 | Emergency (ER) | payer BC, OTHER ==
[~2024-02-08] VITALS: Ht 165.1 cm; Wt 93.0 kg
[~2024-02-08 03:10] MED LIST changes: +NAPR-337 PO
[2024-02-08 03:16] VITALS: BP 113/74; PULSE 79; RESP 20; TEMP 97.3; O2SAT 100
[2024-02-08] MEDS ORDERED: ATA25 PO (03:30)
[2024-02-08] MEDS ORDERED: OMEP40EC24 PO (03:30)
== END 2024-02-08 03:38 | disposition home or self-care (01) ==
LOC: MED 03:10
DX: F41.9 Anxiety disorder, unspecified (principal); Z88.1 Allergy status to other antibiotic agents; Z88.8 Allergy status to other drugs, medicaments and biological substances; Z79.899 Other long term (current) drug therapy
CPT/HCPCS: 99283